=== PATIENT | female | born 1950 | race Caucasian/White ===

== ENCOUNTER 2017-08-14 13:53 | Outpatient (RCR) | payer MEDICARE, MEDICAID | END 2017-08-15 10:33 | disposition home or self-care (01) | PROVIDERS: ATTEND Nurse Practitioner Family | DX: M54.41 Lumbago with sciatica, right side (principal) ==

== ENCOUNTER 2020-05-17 05:35 | Outpatient (RCR) | payer MEDICARE, MEDICAID ==
[~2020-05-17] VITALS: Ht 154.9 cm; Wt 100.0 kg
[~2020-05-17 05:35] MED LIST: ASPI-999 PO; CHOL200059 PO; ENAL20TA16 PO; HYDR25TA4 PO; METF-399 PO; METO50TA15 PO; OMEG1CAP58 PO; ROSU10TA28 PO; VITA-189 PO
== END 2020-05-17 10:07 | disposition home or self-care (01) ==
LOC: PREOP 05:35
PROVIDERS: ATTEND Specialist
DX: Z01.812 Encounter for preprocedural laboratory examination (principal); Z20.822 Contact with and (suspected) exposure to COVID-19
CPT/HCPCS: 87635

== ENCOUNTER 2020-05-19 08:27 | Day surgery (SDC) | payer MEDICARE, MEDICAID ==
[~2020-05-19] VITALS: Ht 154.9 cm; Wt 100.0 kg
[2020-05-19 08:35] VITALS: BP 187/83
[2020-05-19] MEDS ORDERED: TIMOLOL MALEATE 0.5% 5 ML (TIMOPTIC) BTL OU PRN (08:45)
[2020-05-19] MEDS ORDERED: LIDOCAINE PF 1% 2 ML VIAL IR PRN (08:45)
[2020-05-19] MEDS ORDERED: POVIDONE (BETADINE) OPHTH SOLN 5% 30 ML OP ONE (08:45)
[2020-05-19] MEDS ORDERED: MOXIFLOXACIN OPHTH SOLN 5 MG/ML 0.3 ML SYRINGE OP ONE (08:45)
[2020-05-19] MEDS: TETRACAINE 0.5% OPHTH SOLN 4 ML BTL (SINGLE DOSE ONLY) OU PRN ×4 (08:49→09:06)
[2020-05-19] MEDS: TROPICAMIDE 1% OPH SOLN (MYDRIACYL) 15 ML BTL OP SCH ×3 (08:55→09:06)
[2020-05-19] MEDS: PHENYLEPHRINE 10% OPHTH (NEO-SYN) 5 ML BTL OU SCH ×3 (08:55→09:06)
--- NOTE | 2020-05-19 09:14 | Ophthalmologist Pre-Op Note ---
Pre-Operative Progress Note H&P Reviewed The H&P was reviewed, patient examined and no changes noted. Date H&P Reviewed: May 19, 2020 Time H&P Reviewed: 09:14 Pre-Op Dx Cataract, Right Eye RUFINO DICKEY MD May 19, 2020 09:14
[2020-05-19] MEDS ORDERED: MIDAZOLAM 2 MG/2 ML (VERSED) VIAL ONE (09:35)
[2020-05-19] MEDS ORDERED: acetaZOLAMIDE ER 500 MG CAP (DIAMOX SEQUELS) PO ONE (10:00)
--- NOTE | 2020-05-19 10:00 | Ophthalmology Operative Report ---
Cataract removal/placement IOL PREOPERATIVE DIAGNOSIS: Cataract Right Eye POSTOPERATIVE DIAGNOSIS: Cataract Right Eye PROCEDURE: Cataract removal and placement of posterior chamber implant, right eye SURGEON: Brien Dickey ANESTHESIA: Topical with sedation COMPLICATIONS: None ESTIMATED BLOOD LOSS: Minimal DESCRIPTION OF PROCEDURE: After proper informed consent was obtained, the patient, a 69 female, was taken to the Operating Room and the right eye was anesthetized with tetracaine. The right eye was then prepped and draped in the usual manner. A wire lid speculum was placed. A paracentesis was made at the left hand position. Preservative free lidocaine was injected into the anterior chamber followed by viscoelastic. A clear corneal incision was made in the temporal position. A capsulorrhexis was preformed and the central nuclear and cortical material were removed. The posterior capsule was polished and Yakov 20.0 AU00T0 IOL was placed into the capsular bag. The residual viscoelastic was aspirated and balanced saline solution was injected into the anterior chamber. Moxifloxacin was injected into the anterior chamber. The wound was checked and found to be water tight. The patient tolerated the procedure well without complications. BRIEN DICKEY MD May 19, 2020 10:00
[2020-05-19 10:10] VITALS: BP 149/82
--- NOTE | 2020-05-19 10:35 | Anesthesia-General Post-Op ---
MAC Patient Condition Mental Status/LOC: Same as Preop Cardiovascular: Satisfactory Nausea/Vomiting: Absent Respiratory: Satisfactory Pain: Controlled Complications: Absent Post Op Complications Complications None Follow Up Care/Instructions Patient Instructions None needed. Anesthesiology Discharge Order Discharge Order Patient was seen this morning after the procedure and she was doing well, no complaints, stable vital signs, no apparent adverse anesthesia problems. MARILYN FRANCO DO May 19, 2020 10:35
== END 2020-05-19 10:10 | disposition home or self-care (01) ==
LOC: SDC 08:27
PROVIDERS: ATTEND Specialist
DX: E11.36 Type 2 diabetes mellitus with diabetic cataract (principal); H25.11 Age-related nuclear cataract, right eye; I10 Essential (primary) hypertension; M19.90 Unspecified osteoarthritis, unspecified site; E66.01 Morbid (severe) obesity due to excess calories; Z68.41 Body mass index [BMI] 40.0-44.9, adult; Z79.899 Other long term (current) drug therapy; Z79.84 Long term (current) use of oral hypoglycemic drugs
CPT/HCPCS: 82962

== ENCOUNTER 2020-06-09 08:19 | Day surgery (SDC) | payer MEDICARE, MEDICAID ==
[~2020-06-09] VITALS: Ht 154.9 cm; Wt 100.0 kg
[2020-06-09 08:30] VITALS: BP 143/76
[2020-06-09] MEDS ORDERED: LIDOCAINE PF 1% 2 ML VIAL IR PRN (08:30)
[2020-06-09] MEDS ORDERED: MOXIFLOXACIN OPHTH SOLN 5 MG/ML 0.3 ML SYRINGE OP ONE (08:30)
[2020-06-09] MEDS ORDERED: POVIDONE (BETADINE) OPHTH SOLN 5% 30 ML OP ONE (08:30)
[2020-06-09] MEDS ORDERED: TIMOLOL MALEATE 0.5% 5 ML (TIMOPTIC) BTL OU PRN (08:30)
[2020-06-09] MEDS: TETRACAINE 0.5% OPHTH SOLN 4 ML BTL (SINGLE DOSE ONLY) OU PRN ×4 (08:32→09:00)
[2020-06-09] MEDS: TROPICAMIDE 1% OPH SOLN (MYDRIACYL) 15 ML BTL OP SCH ×3 (08:47→09:00)
[2020-06-09] MEDS: PHENYLEPHRINE 10% OPHTH (NEO-SYN) 5 ML BTL OU SCH ×3 (08:47→09:00)
[2020-06-09] MEDS ORDERED: MIDAZOLAM 2 MG/2 ML (VERSED) VIAL ONE (08:59)
--- NOTE | 2020-06-09 09:28 | Ophthalmologist Pre-Op Note ---
Pre-Operative Progress Note H&P Reviewed The H&P was reviewed, patient examined and no changes noted. Date H&P Reviewed: Jun 09, 2020 Time H&P Reviewed: 09:28 Pre-Op Dx Cataract, Left Eye RUFINO DICKEY MD Jun 09, 2020 09:28
--- NOTE | 2020-06-09 09:47 | Ophthalmology Operative Report ---
Cataract removal/placement IOL PREOPERATIVE DIAGNOSIS: Cataract Left Eye POSTOPERATIVE DIAGNOSIS: Cataract Left Eye PROCEDURE: Cataract removal and placement of posterior chamber implant, left eye SURGEON: Brien Dickey ANESTHESIA: Topical with sedation COMPLICATIONS: None ESTIMATED BLOOD LOSS: Minimal DESCRIPTION OF PROCEDURE: After proper informed consent was obtained, the patient, a 70 female, was taken to the Operating Room and the left eye was anesthetized with tetracaine. The left eye was then prepped and draped in the usual manner. A wire lid speculum was placed. A paracentesis was made at the left hand position. Preservative free lidocaine was injected into the anterior chamber followed by viscoelastic. A clear corneal incision was made in the temporal position. A capsulorrhexis was preformed and the central nuclear and cortical material were removed. The posterior capsule was polished and an Yakov 19.5 AU00T0 was placed into the capsular bag. The residual viscoelastic was aspirated and balanced saline solution was injected into the anterior chamber. Moxifloxacin was injected into the anterior chamber. The wound was checked and found to be water tight. The patient tolerated the procedure well without complications. BRIEN DICKEY MD Jun 09, 2020 09:47
[2020-06-09 09:55] VITALS: BP 145/65
[2020-06-09] MEDS ORDERED: acetaZOLAMIDE ER 500 MG CAP (DIAMOX SEQUELS) PO ONE (10:00)
--- NOTE | 2020-06-09 12:19 | Anesthesia-General Post-Op ---
MAC Patient Condition Mental Status/LOC: Same as Preop Cardiovascular: Satisfactory Nausea/Vomiting: Absent Respiratory: Satisfactory Pain: Controlled Complications: Absent Post Op Complications Complications None Follow Up Care/Instructions Patient Instructions None needed. Anesthesiology Discharge Order Discharge Order Patient is doing well, no complaints, stable vital signs, no apparent adverse anesthesia problems. No complications reported per nursing. DENZEL VERDE CRNA Jun 09, 2020 12:19
== END 2020-06-09 09:55 | disposition home or self-care (01) ==
LOC: SDC 08:19
PROVIDERS: ATTEND Specialist
DX: H25.12 Age-related nuclear cataract, left eye (principal); I10 Essential (primary) hypertension; E11.9 Type 2 diabetes mellitus without complications; E66.01 Morbid (severe) obesity due to excess calories; M19.90 Unspecified osteoarthritis, unspecified site; Z68.41 Body mass index [BMI] 40.0-44.9, adult; Z79.82 Long term (current) use of aspirin; Z79.899 Other long term (current) drug therapy; Z79.84 Long term (current) use of oral hypoglycemic drugs; Z98.890 Other specified postprocedural states; Z80.9 Family history of malignant neoplasm, unspecified
CPT/HCPCS: 82962